=== PATIENT | female | born 1980 | race Hispanic/Latino ===

== ENCOUNTER 2019-06-13 07:58 | Emergency (ER) | payer SELFPAY ==
[2019-06-13] MEDS ORDERED: ONDANSETRON HCL 4 MG/2 ML VIAL ONE (08:33)
[2019-06-13] MEDS ORDERED: HYOSCYAMINE SULFATE 0.125 MG TAB.SUBL SL ONE (08:38)
[2019-06-13] MEDS ORDERED: ACETAMINOPHEN EXTRA STRENGTH 500 MG TABLET ONE (08:38)
[2019-06-13 08:47] LABS: BILIRUBIN,URINE NEGATIVE (NEGATIVE); COLOR,URINE YELLOW (YELLOW); GLUCOSE, URINE (UA) NEGATIVE (NEGATIVE); KETONES,URINE NEGATIVE (NEGATIVE); LEUKOCYTE ESTERASE ,URINE TRACE (NEGATIVE); NITRATE,URINE NEGATIVE (NEGATIVE); OCCULT BLOOD,URINE SMALL (NEGATIVE); PROTEIN,URINE 100 mg/dL (NEGATIVE); UROBILINOGEN,URINE 0.2 mg/dL (0.2-1.0)
[2019-06-13 08:50] LABS: APPEARANCE,URINE SLIGHTLY CLOUDY (CLEAR); HCG,QUAL RESULT NEGATIVE (NEGATIVE)
[2019-06-13 08:57] LABS: BASOPHILS % (AUTO) 0.6 % (0.0-5.0); EOSINOPHILS % (AUTO) 1.4 % (0.0-8.0); HEMATOCRIT 39.1 % (36-48); LYMPHOCYTES % (AUTO) 19.6 % (21.0-51.0); MEAN CORPUSCULAR HEMOGLOBIN 30.2 pg (27.0-33.0); MEAN CORPUSCULAR HGB CONC 33.7 g/dL (32.0-36.0); MEAN CORPUSCULAR VOLUME 89.5 fL (79-99); MONOCYTES % (AUTO) 5.3 % (3.0-13.0); NEUTROPHILS % (AUTO) 73.1 % (40.0-77.0); PLATELET COUNT (AUTO) 285 K/uL (130-400); RED BLOOD CELL COUNT(AUTO) 4.36 MIL/uL (4.00-5.50); RED CELL DISTRIBUTION WIDTH 13.4 % (11.0-15.5); WHITE BLOOD COUNT (AUTO) 12.3 K/uL (4.8-10.8)
[2019-06-13 09:01] LABS: CREATININE 0.6 mg/dL (0.5-1.5); POTASSIUM 4.4 mmol/L (3.5-5.1)
[2019-06-13 09:05] LABS: BILIRUBIN,TOTAL 0.6 mg/dL (0.2-1.0)
[2019-06-13 09:06] LABS: BACTERIA,URINE Few /HPF (None Seen)
[2019-06-13 09:07] LABS: SQUAMOUS EPITHELIAL CELL,UR 30-50 /HPF (0-2)
[2019-06-13] MEDS ORDERED: KETOROLAC TROMETHAMINE 30MG/ML ONE (09:26)
[2019-06-13] MEDS ORDERED: SODIUM CHLORIDE 0.9% 1000ML 1,000 ML IV ONE (09:27)
[2019-06-13] MEDS ORDERED: IOHEXOL 350 MG/ML 100ML INFUS..BTL IV ONE (10:24)
== END 2019-06-13 12:00 | disposition home or self-care (01) ==
LOC: EDH 07:58
DX: A08.4 Viral intestinal infection, unspecified (principal); E86.0 Dehydration; I10 Essential (primary) hypertension; Z98.890 Other specified postprocedural states
CPT/HCPCS: 36415; 74177; 80053; 81001; 81025; 83690; 85025; 87486; 87797; 93005; 96361; 96374; 96375; 99285; J1885; J2405; J7030; Q9967

== ENCOUNTER 2023-04-03 18:39 | Emergency (ER) | payer OTHER ==
[~2023-04-03] VITALS: Ht 149.9 cm; Wt 72.6 kg
[2023-04-03 18:43] VITALS: BP 162/102
[2023-04-03] MEDS ORDERED: BACITRACIN 1 EACH PACKET TP ONE (19:43)
[2023-04-03] MEDS ORDERED: TETANUS/DIPHTHERIA TOXOID [ADULT] 0.5 ML VIAL IM ONE (19:55)
[2023-04-03] MEDS ORDERED: HYDROCODONE/ACETAMINOPHEN 5/325 MG TAB PO ONE (20:30)
[2023-04-03] MEDS ORDERED: IBUPROFEN 600 MG TABLET PO ONE (20:30)
[2023-04-03] MEDS ORDERED: ONDANSETRON ODT 4MG TAB SL ONE (20:30)
[2023-04-03] MEDS ORDERED: AMOX/CLAV 875/125MG TAB PO ONE (20:30)
[2023-04-03] MEDS ORDERED: AMOX1TAB16 PO (20:58)
[2023-04-03] MEDS ORDERED: IBUP-2070 PO (20:58)
[2023-04-03 21:15] VITALS: PULSE 78; RESP 18
== END 2023-04-03 21:19 | disposition home or self-care (01) ==
LOC: EDH 18:39
DX: S81.052A Open bite, left knee, initial encounter (principal); Z98.890 Other specified postprocedural states; W54.0XXA Bitten by dog, initial encounter; Y93.89 Activity, other specified; Y92.89 Other specified places as the place of occurrence of the external cause; Y99.8 Other external cause status
CPT/HCPCS: 90471; 90714